=== PATIENT | female | born 1950 | race Caucasian/White ===

== ENCOUNTER 2017-05-20 07:09 | Outpatient (CLI) | payer MEDICARE ==
[2017-05-20 13:12] LABS: BASOPHILS % (AUTO) 0.3 %; EOSINOPHILS % (AUTO) 0.1 %; HGB - HEMOGLOBIN 12.9 g/dL (12.0-16.0); LYMPHOCYTES # (AUTO) 2.6 10^3/uL (1.5-3.5); LYMPHOCYTES % (AUTO) 24.5 %; MEAN CORPUSCULAR HEMOGLOBIN 30.7 pg (27.0-31.0); MEAN CORPUSCULAR VOLUME 90.2 fL (81.0-99.0); MEAN PLATELET VOLUME 8.3 fL (7.9-10.8); MONOCYTES # (AUTO) 0.6 10^3/uL (0.0-1.0); NEUTROPHILS # (AUTO) 7.3 10^3/uL (1.5-6.6); NEUTROPHILS % (AUTO) 69.1 %; PLT - PLATELET COUNT 369 10^3/uL (130-450); RED BLOOD COUNT 4.19 10^6/uL (4.20-5.40); RED CELL DISTRIBUTION WIDTH 14.4 % (12.0-15.0); WHITE BLOOD COUNT 10.5 x10^3/uL (4.8-10.8)
[2017-05-20 13:33] LABS: ALBUMIN 4.1 g/dL (3.2-5.5); ALBUMIN/GLOBULIN RATIO 1.1 (1.0-2.2); ALKALINE PHOSPHATASE 112 IU/L (42-121); ALT ALANINE AMINOTRANSFERASE 15 IU/L (10-60); AST ASPARTATE AMINOTRANSFERASE 17 IU/L (10-42); BILIRUBIN,TOTAL 0.4 mg/dL (0.2-1.0); BUN - BLOOD UREA NITROGEN 19 mg/dL (6-20); CALCIUM 9.2 mg/dL (8.5-10.3); CARBON DIOXIDE - CO2 25 mmol/L (21-32); CHLORIDE 102 mmol/L (101-111); CHOL/HDL RATIO 4.5 (<4.4); CHOLESTEROL 191 mg/dL; CREATININE 0.8 mg/dL (0.4-1.0); GFR - MDRD 72 (>89); GLUCOSE 112 mg/dL (70-100); HDL CHOLESTEROL 42 mg/dL; LDL CHOLESTEROL,CALCULATED 102 mg/dL; LDL/HDL RATIO 2.4 (<4.4); SODIUM 138 mmol/L (135-145); TOTAL PROTEIN 7.7 g/dL (6.7-8.2); VLDL CHOLESTEROL 47 mg/dL
[2017-05-20 14:09] LABS: HB2 TOTAL 13.8 g/dL; HEMOGLOBIN A1C 0.54 g/dL; HEMOGLOBIN A1C % 5.7 % (4.6-6.2)
== END 2017-05-20 07:10 | disposition home or self-care (01) ==
LOC: LAB.WCP 07:09
PROVIDERS: ATTEND Physician Assistant Medical
DX: E78.00 Pure hypercholesterolemia, unspecified (principal); G40.909 Epilepsy, unspecified, not intractable, without status epilepticus; R73.9 Hyperglycemia, unspecified; Z51.81 Encounter for therapeutic drug level monitoring; Z79.899 Other long term (current) drug therapy
CPT/HCPCS: 36415; 80053; 80061; 80185; 81599; 83036; 83721; 85025

== ENCOUNTER 2018-05-08 09:49 | Outpatient (CLI) | payer MEDICARE ==
[2018-05-08 14:55] LABS: ALBUMIN 3.7 g/dL (3.2-5.5); ALKALINE PHOSPHATASE 117 IU/L (42-121); ALT ALANINE AMINOTRANSFERASE 13 IU/L (10-60); AST ASPARTATE AMINOTRANSFERASE 17 IU/L (10-42); BILIRUBIN,TOTAL 0.4 mg/dL (0.2-1.0); BUN - BLOOD UREA NITROGEN 16 mg/dL (6-20); CALCIUM 8.6 mg/dL (8.5-10.3); CARBON DIOXIDE - CO2 26 mmol/L (21-32); CHLORIDE 102 mmol/L (101-111); CHOL/HDL RATIO 5.2 (<4.4); CHOLESTEROL 182 mg/dL; CREATININE 0.8 mg/dL (0.4-1.0); GFR - MDRD 72 (>89); GLUCOSE 129 mg/dL (70-100); HDL CHOLESTEROL 35 mg/dL; LDL CHOLESTEROL,CALCULATED 99 mg/dL; LDL/HDL RATIO 2.8 (<4.4); PHENYTOIN (DILANTIN) 8.5 ug/mL; SODIUM 134 mmol/L (135-145); TOTAL PROTEIN 7.3 g/dL (6.7-8.2); VLDL CHOLESTEROL 48 mg/dL
[2018-05-08 15:18] LABS: BASOPHILS % (AUTO) 0.3 %; EOSINOPHILS % (AUTO) 0.1 %; HGB - HEMOGLOBIN 12.8 g/dL (12.0-16.0); LYMPHOCYTES # (AUTO) 1.9 10^3/uL (1.5-3.5); LYMPHOCYTES % (AUTO) 21.2 %; MEAN CORPUSCULAR HEMOGLOBIN 30.6 pg (27.0-31.0); MEAN CORPUSCULAR VOLUME 90.2 fL (81.0-99.0); MEAN PLATELET VOLUME 8.3 fL (7.9-10.8); MONOCYTES # (AUTO) 0.6 10^3/uL (0.0-1.0); MONOCYTES % (AUTO) 6.8 %; NEUTROPHILS # (AUTO) 6.3 10^3/uL (1.5-6.6); NEUTROPHILS % (AUTO) 71.6 %; PLT - PLATELET COUNT 396 10^3/uL (130-450); RED BLOOD COUNT 4.17 10^6/uL (4.20-5.40); RED CELL DISTRIBUTION WIDTH 15.2 % (12.0-15.0); WHITE BLOOD COUNT 8.9 x10^3/uL (4.8-10.8)
== END 2018-05-08 09:50 | disposition home or self-care (01) ==
LOC: LAB.WCP 09:49
PROVIDERS: ATTEND Family Medicine
DX: E78.00 Pure hypercholesterolemia, unspecified (principal); Z51.81 Encounter for therapeutic drug level monitoring; Z79.899 Other long term (current) drug therapy; R73.9 Hyperglycemia, unspecified; F32.9 Major depressive disorder, single episode, unspecified; I10 Essential (primary) hypertension
CPT/HCPCS: 36415; 80053; 80061; 80185; 83721; 84443; 85025

== ENCOUNTER 2018-05-11 12:55 | Outpatient (CLI) | payer MEDICARE ==
[2018-05-11 19:55] LABS: HB2 TOTAL 13.5 g/dL; HEMOGLOBIN A1C 0.56 g/dL; HEMOGLOBIN A1C % 5.9 % (4.6-6.2)
== END 2018-05-11 23:59 | disposition home or self-care (01) ==
LOC: LAB.WCP 12:55
PROVIDERS: ATTEND Family Medicine
DX: R73.9 Hyperglycemia, unspecified (principal)
CPT/HCPCS: 36415; 83036

== ENCOUNTER 2018-09-22 10:44 | Outpatient (CLI) | payer MEDICARE ==
--- NOTE | 2018-09-23 15:53 | XRAY Report ---
Reason: COPD Procedure Date: 09/22/2018 Accession Number: [id number] / [id number] Procedure: WCP - Chest 1 View X-Ray CPT Code: 30170 FULL RESULT: EXAM: CHEST RADIOGRAPHY EXAM DATE: 09/22/2018 11:04 AM. CLINICAL HISTORY: COPD. Dyspnea on exertion. COMPARISON: None. TECHNIQUE: 1 view. FINDINGS: Lungs/Pleura: Normal volumes. No focal opacities evident. No pleural effusion. No pneumothorax. Mediastinum: Within exam limitations, the cardiomediastinal contour is normal. Other: No osseous abnormality identified. IMPRESSION: Normal single view chest. [facility]
== END 2018-09-22 10:45 | disposition home or self-care (01) ==
LOC: DI.WCP 10:44
PROVIDERS: ATTEND Family Medicine
DX: J44.9 Chronic obstructive pulmonary disease, unspecified (principal)
CPT/HCPCS: 71045

== ENCOUNTER 2019-03-19 08:00 | Outpatient (CLI) | payer MEDICARE | END 2019-03-19 23:59 | disposition home or self-care (01) | LOC: LAB.WCP 08:00 | PROVIDERS: ATTEND Family Medicine | DX: Z79.01 Long term (current) use of anticoagulants (principal); I26.99 Other pulmonary embolism without acute cor pulmonale ==

== ENCOUNTER 2019-09-18 11:15 | Outpatient (CLI) | payer MEDICARE | END 2019-09-18 23:59 | disposition home or self-care (01) | LOC: LAB.R 11:15 | PROVIDERS: ATTEND Family Medicine | DX: Z79.891 Long term (current) use of opiate analgesic (principal) | CPT/HCPCS: 80307; 80361; 80365; 81599 ==

== ENCOUNTER 2020-05-07 10:45 | Outpatient (CLI) | payer MEDICARE | END 2020-05-07 23:59 | disposition home or self-care (01) | LOC: LAB.R 10:45 | PROVIDERS: ATTEND Family Medicine | DX: L97.529 Non-pressure chronic ulcer of other part of left foot with unspecified severity (principal) | CPT/HCPCS: 87070; 87077; 87181; 87205 ==

== ENCOUNTER 2020-09-29 09:12 | Outpatient (CLI) | payer MEDICARE ==
[2020-09-29 13:43] LABS: BASOPHILS % (AUTO) 0.2 %; HCT - HEMATOCRIT 41.2 % (37.0-47.0); LYMPHOCYTES # (AUTO) 2.3 10^3/uL (1.5-3.5); LYMPHOCYTES % (AUTO) 23.2 %; MEAN CORPUSCULAR HEMOGLOBIN 30.2 pg (27.0-31.0); MEAN CORPUSCULAR HGB CONC 31.6 g/dL (32.0-36.0); MEAN CORPUSCULAR VOLUME 95.8 fL (81.0-99.0); MEAN PLATELET VOLUME 10.4 fL (7.9-10.8); MONOCYTES # (AUTO) 0.6 10^3/uL (0.0-1.0); MONOCYTES % (AUTO) 6.3 %; NEUTROPHILS # (AUTO) 6.9 10^3/uL (1.5-6.6); NEUTROPHILS % (AUTO) 69.6 %; PLT - PLATELET COUNT 376 10^3/uL (130-450); RED CELL DISTRIBUTION WIDTH 14.2 % (12.0-15.0); WHITE BLOOD COUNT 9.9 x10^3/uL (4.8-10.8)
[2020-09-29 14:06] LABS: ALBUMIN 4.1 g/dL (3.2-5.5); ALBUMIN/GLOBULIN RATIO 1.1 (1.0-2.2); ALKALINE PHOSPHATASE 98 IU/L (42-121); ALT ALANINE AMINOTRANSFERASE 16 IU/L (10-60); AST ASPARTATE AMINOTRANSFERASE 16 IU/L (10-42); BILIRUBIN,TOTAL 0.4 mg/dL (0.2-1.0); BUN - BLOOD UREA NITROGEN 23 mg/dL (6-20); CALCIUM 8.9 mg/dL (8.5-10.3); CARBON DIOXIDE - CO2 25 mmol/L (21-32); CHLORIDE 102 mmol/L (101-111); CHOL/HDL RATIO 5.1 (<4.4); CHOLESTEROL 210 mg/dL; CREATININE 0.8 mg/dL (0.4-1.0); GFR - MDRD 71 (>89); GLUCOSE 133 mg/dL (70-100); HDL CHOLESTEROL 41 mg/dL; LDL CHOLESTEROL,CALCULATED 115 mg/dL; LDL/HDL RATIO 2.8 (<4.4); PHENYTOIN (DILANTIN) 7.7 ug/mL; POTASSIUM 4.2 mmol/L (3.5-5.0); SODIUM 137 mmol/L (135-145); TOTAL PROTEIN 7.8 g/dL (6.7-8.2); TRIGLYCERIDES 271 mg/dL; VLDL CHOLESTEROL 54 mg/dL
[2020-09-29 14:20] LABS: THYROID STIMULATING HORMONE 0.4 uIU/mL (0.34-5.60)
[2020-09-29 14:27] LABS: ESTIMATED AVERAGE GLUCOSE 126 mg/dL (70-100)
== END 2020-09-29 09:13 | disposition home or self-care (01) ==
LOC: LAB.N 09:12
PROVIDERS: ATTEND Family Medicine
DX: E78.00 Pure hypercholesterolemia, unspecified (principal); R73.9 Hyperglycemia, unspecified; G40.909 Epilepsy, unspecified, not intractable, without status epilepticus
CPT/HCPCS: 36415; 80053; 80061; 80185; 83036; 83721; 84443; 85025

== ENCOUNTER 2020-12-08 09:52 | Outpatient (CLI) | payer MEDICARE | END 2020-12-08 09:53 | disposition home or self-care (01) | LOC: LAB.N 09:52 | PROVIDERS: ATTEND Family Medicine | DX: Z79.01 Long term (current) use of anticoagulants (principal); Z86.711 Personal history of pulmonary embolism | CPT/HCPCS: 36416; 85610 ==

== ENCOUNTER 2021-01-05 09:23 | Outpatient (CLI) | payer MEDICARE | END 2021-01-05 09:24 | disposition home or self-care (01) | LOC: LAB.N 09:23 | PROVIDERS: ATTEND Family Medicine | DX: Z79.01 Long term (current) use of anticoagulants (principal); Z86.711 Personal history of pulmonary embolism | CPT/HCPCS: 36416; 85610 ==

== ENCOUNTER 2021-02-10 10:35 | Outpatient (CLI) | payer MEDICARE | END 2021-02-10 23:59 | disposition home or self-care (01) | LOC: LAB.N 10:35 | PROVIDERS: ATTEND Family Medicine | DX: Z86.711 Personal history of pulmonary embolism (principal); Z79.01 Long term (current) use of anticoagulants | CPT/HCPCS: 85610 ==

== ENCOUNTER 2021-03-16 10:37 | Outpatient (CLI) | payer OTHER, MEDICARE | END 2021-03-16 10:38 | disposition home or self-care (01) | LOC: LAB.N 10:37 | PROVIDERS: ATTEND Family Medicine | DX: I26.99 Other pulmonary embolism without acute cor pulmonale (principal); Z79.01 Long term (current) use of anticoagulants; Z86.711 Personal history of pulmonary embolism | CPT/HCPCS: 85610 ==

== ENCOUNTER 2021-03-30 10:28 | Outpatient (CLI) | payer MEDICARE | END 2021-03-30 10:29 | disposition home or self-care (01) | LOC: LAB.N 10:28 | PROVIDERS: ATTEND Family Medicine | DX: I26.99 Other pulmonary embolism without acute cor pulmonale (principal); Z79.01 Long term (current) use of anticoagulants; Z86.711 Personal history of pulmonary embolism | CPT/HCPCS: 36416; 85610 ==

== ENCOUNTER 2021-07-16 10:10 | Outpatient (CLI) | payer OTHER, MEDICARE | END 2021-07-16 10:11 | disposition home or self-care (01) | LOC: LAB.N 10:10 | PROVIDERS: ATTEND Family Medicine | DX: Z79.01 Long term (current) use of anticoagulants (principal); I26.99 Other pulmonary embolism without acute cor pulmonale | CPT/HCPCS: 36415; 85610 ==

== ENCOUNTER 2021-10-01 10:53 | Outpatient (CLI) | payer OTHER, MEDICARE ==
[2021-10-01 17:58] LABS: ALBUMIN 4.3 g/dL (3.2-5.5); ALBUMIN/GLOBULIN RATIO 1.3 (1.0-2.2); ALKALINE PHOSPHATASE 97 IU/L (42-121); ALT ALANINE AMINOTRANSFERASE 18 IU/L (10-60); AST ASPARTATE AMINOTRANSFERASE 20 IU/L (10-42); BILIRUBIN,TOTAL 0.6 mg/dL (0.2-1.0); BUN - BLOOD UREA NITROGEN 19 mg/dL (6-20); CALCIUM 8.9 mg/dL (8.5-10.3); CARBON DIOXIDE - CO2 25 mmol/L (21-32); CHLORIDE 103 mmol/L (101-111); CHOL/HDL RATIO 5.3 (<4.4); CHOLESTEROL 207 mg/dL; CREATININE 0.8 mg/dL (0.4-1.0); GFR - MDRD 71 (>89); GLUCOSE 107 mg/dL (70-100); HDL CHOLESTEROL 39 mg/dL; LDL CHOLESTEROL,CALCULATED 113 mg/dL; LDL/HDL RATIO 2.9 (<4.4); POTASSIUM 4.2 mmol/L (3.5-5.0); SODIUM 137 mmol/L (135-145); TOTAL PROTEIN 7.7 g/dL (6.7-8.2); TRIGLYCERIDES 273 mg/dL; VLDL CHOLESTEROL 55 mg/dL
[2021-10-01 17:59] LABS: BASOPHILS % (AUTO) 0.2 %; HCT - HEMATOCRIT 40.7 % (37.0-47.0); HGB - HEMOGLOBIN 13.2 g/dL (12.0-16.0); LYMPHOCYTES # (AUTO) 2.1 10^3/uL (1.5-3.5); LYMPHOCYTES % (AUTO) 23.1 %; MEAN CORPUSCULAR HEMOGLOBIN 30.4 pg (27.0-31.0); MEAN CORPUSCULAR HGB CONC 32.4 g/dL (32.0-36.0); MEAN CORPUSCULAR VOLUME 93.8 fL (81.0-99.0); MEAN PLATELET VOLUME 10.7 fL (7.9-10.8); MONOCYTES # (AUTO) 0.6 10^3/uL (0.0-1.0); MONOCYTES % (AUTO) 6.2 %; NEUTROPHILS # (AUTO) 6.3 10^3/uL (1.5-6.6); NEUTROPHILS % (AUTO) 69.9 %; PLT - PLATELET COUNT 438 10^3/uL (130-450); RED BLOOD COUNT 4.34 10^6/uL (4.20-5.40); RED CELL DISTRIBUTION WIDTH 15.3 % (12.0-15.0)
[2021-10-01 18:11] LABS: THYROID STIMULATING HORMONE 0.56 uIU/mL (0.34-5.60)
[2021-10-01 21:11] LABS: ESTIMATED AVERAGE GLUCOSE 120 mg/dL (70-100); HEMOGLOBIN A1c% 5.8 % (4.27-6.07)
== END 2021-10-01 10:54 | disposition home or self-care (01) ==
LOC: LAB.N 10:53
PROVIDERS: ATTEND Physician Assistant
DX: R73.9 Hyperglycemia, unspecified (principal); E78.00 Pure hypercholesterolemia, unspecified; Z13.29 Encounter for screening for other suspected endocrine disorder; Z79.899 Other long term (current) drug therapy; Z79.01 Long term (current) use of anticoagulants; I26.99 Other pulmonary embolism without acute cor pulmonale
CPT/HCPCS: 36415; 36416; 80053; 80061; 83036; 83721; 84443; 85025; 85610

== ENCOUNTER 2021-10-29 10:40 | Outpatient (CLI) | payer MEDICARE, OTHER | END 2021-10-29 10:41 | disposition home or self-care (01) | LOC: LAB.N 10:40 | PROVIDERS: ATTEND Family Medicine | DX: Z79.01 Long term (current) use of anticoagulants (principal); Z86.711 Personal history of pulmonary embolism | CPT/HCPCS: 36416; 85610 ==

== ENCOUNTER 2023-01-08 23:53 | Outpatient (CLI) | payer MEDICARE | END 2023-01-08 23:59 | disposition short-term general hospital (02) | LOC: EMS 23:53 | DX: M79.89 Other specified soft tissue disorders (principal); R23.8 Other skin changes; M79.671 Pain in right foot; M79.662 Pain in left lower leg | CPT/HCPCS: A0425; A0429; A0888 ==